=== PATIENT | male | born 2000 | race Two or more races ===

== ENCOUNTER 2020-06-14 19:43 | Emergency (ER) | payer MEDICAID, OTHER ==
[~2020-06-14] VITALS: Ht 167.6 cm; Wt 59.0 kg
[2020-06-14 21:50] VITALS: BP 123/84
== END 2020-06-14 21:50 | disposition home or self-care (01) ==
LOC: ER 19:43
DX: F18.180 Inhalant abuse with inhalant-induced anxiety disorder (principal); F12.90 Cannabis use, unspecified, uncomplicated; R00.0 Tachycardia, unspecified; R03.0 Elevated blood-pressure reading, without diagnosis of hypertension
CPT/HCPCS: 93005; 99283

== ENCOUNTER 2020-10-18 01:45 | Emergency (ER) | payer MEDICAID ==
[~2020-10-18] VITALS: Ht 167.6 cm; Wt 59.0 kg
[2020-10-18 03:09] VITALS: BP 124/82
== END 2020-10-18 03:10 | disposition home or self-care (01) ==
LOC: ER 01:45
DX: Z00.00 Encounter for general adult medical examination without abnormal findings (principal); F41.9 Anxiety disorder, unspecified; F12.90 Cannabis use, unspecified, uncomplicated
CPT/HCPCS: 99281

== ENCOUNTER 2020-10-28 02:02 | Emergency (ER) | payer MEDICAID ==
[~2020-10-28] VITALS: Ht 167.6 cm; Wt 59.0 kg
[2020-10-28 02:35] VITALS: BP 132/84
== END 2020-10-28 03:17 | disposition home or self-care (01) ==
LOC: ER 02:02
DX: F41.9 Anxiety disorder, unspecified (principal); R07.9 Chest pain, unspecified; R06.02 Shortness of breath
CPT/HCPCS: 93005; 99283